=== PATIENT | male | born 1945 | race Caucasian/White ===

== ENCOUNTER → 2016-10-21 | Outpatient (CLI) | payer OTHER, MEDICARE ==
--- NOTE | 2016-10-21 08:50 | DIAGNOSTIC IMAGING REPORT ---
KUB CLINICAL HISTORY: N40.1 Benign prostatic hyperplasia with urinary [id number] COMPARISON STUDY: No previous studies for comparison. FINDINGS: There is no pathologic bowel dilatation. There is 11 mm calcification projected over the lower pole the left kidney suspicious for a calculus. There is a 3 mm calcification overlying the lateral aspect of the L1 transverse process. Is unclear whether this is intrinsic or extrinsic to the kidney. Vascular calcifications are evident. Pelvic basin calcifications while nonspecific likely represent phleboliths. There are surgical clips within the right upper quadrant consistent with a prior cholecystectomy. IMPRESSION: 1. Suspected 11 mm lower pole left renal calculus. 2. Nonspecific 3 mm calcification overlying the medial aspect of the right kidney 3. No evidence of pathologic bowel dilatation Electronically signed by: Luis Conte M.D. 10/21/2016 8:49 AM Dictated Date/Time: 10/21/2016 8:47 AM
== END | disposition home or self-care (01) ==
LOC: C.RAD 08:21
PROVIDERS: ATTEND Urology
DX: N40.1 Benign prostatic hyperplasia with lower urinary tract symptoms (principal); N20.0 Calculus of kidney; N28.89 Other specified disorders of kidney and ureter